=== PATIENT | male | born 1980 | race African-American/Black ===

== ENCOUNTER 2020-05-13 21:04 | Observation (INO) ==
[~2020-05-13 21:04] MED LIST: SODIUM CHLORIDE 0.9% 1,000 ML IV SCH
[2020-05-13] MEDS ORDERED: LACTULOSE 20 GM/30 ML UDCUP PO STA (22:33)
[2020-05-13 23:11] LABS: Basophils % 0.6 % (0.0-0.8); Eosinophils # 0.1 10*3/uL (0.0-0.87); Hematocrit 38.9 VOL% (42.0-52.0); Hemoglobin 12.7 GM/DL (14.0-18.0); Immature Granulocytes % 0.2 %; Immature Granulocytes Absolute 0.01 #; Lymphocytes # 1.9 10*3/uL (1.4-4.0); Lymphocytes % 38.5 % (21.2-54.2); Mean Corpuscular HGB Conc 32.6 GM/DL (32-36); Mean Corpuscular Volume 87.2 FL (87-102); Mean Platelet Volume 9.6 FL (9.6-12.0); Monocytes % 7.9 % (1.7-12.7); Neutrophils % 51.8 % (38.7-73.9); Platelet Count 247 T/CUMM (130-400); Red Blood Count 4.46 MC/CUMM (3.8-5.5); White Blood Count 4.9 T/CUMM (4-12)
[2020-05-13 23:32] LABS: Alanine Aminotransferase 28 U/L (16-61); Albumin 3.8 G/DL (3.4-5.0); Alkaline Phosphatase 88 U/L (45-117); Aspartate Amino Transferase 21 U/L (0-37); Bilirubin,Total < 0.39 MG/DL (0.2-1.0); Blood Urea Nitrogen 14 MG/DL (7-18); Calcium 9.1 MG/DL (8.5-10.1); Estimated Glom Filtration Rate 153 ML/MIN; Glucose 89 MG/DL (74-106); Total Protein 7.9 G/DL (6.4-8.3)
[2020-05-13] MEDS ORDERED: ONDANSETRON 4 MG/2 ML VIAL IV PRN (23:41)
[2020-05-13] MEDS ORDERED: GLUCAGON 1 MG VIAL IM PRN (23:41)
[2020-05-13] MEDS ORDERED: DEXTROSE 50% 25 GM/50 ML VIAL IV PRN (23:41)
[2020-05-13 23:54] LABS: INR 1.1; PT Patient Result 11.6 SECS (9.8-11.9)
[2020-05-13] MEDS ORDERED: LACTULOSE 20 GM/30 ML UDCUP PO PRN (23:54)
[2020-05-14] MEDS ORDERED: DIVALPROEX ER 500 MG TABLET PO SCH (07:30)
[2020-05-14] MEDS ORDERED: ENOXAPARIN 40 MG/0.4 ML SYRINGE SUBCUT SCH (09:00)
[2020-05-14] MEDS ORDERED: INFLUENZA VIRUS VACCINE 0.5 ML SYRINGE IM ONE (09:43)
[2020-05-14] MEDS ORDERED: LACTULOSE 20 GM/30 ML UDCUP PO ONE (11:33)
[2020-05-14] MEDS ORDERED: LINACLOTIDE 145 MCG CAPSULE PO ONE (11:45)
[2020-05-14 15:57] VITALS: BP 115/78
== END 2020-05-14 15:50 | disposition left against medical advice (07) ==
LOC: N.ED 21:04 → N.EDINP 21:04 → N.3W 05-14 09:30
PROVIDERS: ADMIT Hospitalist; ATTEND Hospitalist